=== PATIENT | male | born 1985 | race Caucasian/White ===

== ENCOUNTER 2021-10-18 06:36 | Emergency (ER) | payer SELFPAY ==
[2021-10-18 09:10] LABS: BILIRUBIN 1+ mg/dL (NEGATIVE); BLOOD NEGATIVE Ery/uL (NEGATIVE); CLARITY CLEAR (CLEAR); COLOR YELLOW (YELLOW); GLUCOSE (U) NORMAL (NORMAL); LEUKOCYTES TRACE Leu/uL (NEGATIVE); NITRITE NEGATIVE (NEGATIVE); PROTEIN TRACE (LOW) mg/dL (NEGATIVE); SPECIFIC GRAVITY 1.025 (1.001-1.030)
[2021-10-18] MEDS ORDERED: NAPROXEN500 MG PO (09:20)
[2021-10-18] MEDS ORDERED: VIBRAMYCIN100 MG PO (09:20)
[2021-10-18] MEDS ORDERED: NORCO 5-325 TA1 EACH PO (09:20)
[2021-10-18 09:29] LABS: URINARY WBC 20-50
[2021-10-18 09:30] LABS: BACTERIA TRACE; SPERM PRESENT
[2021-10-19 22:06] LABS: CHLAMYDIA TRACHOMATIS, NAA Negative (Negative); NEISSERIA GONORRHOEAE, NAA Negative (Negative)
== END 2021-10-18 09:58 | disposition home or self-care (01) ==
LOC: FER 06:36
PROVIDERS: Internal Medicine
DX: N45.1 Epididymitis (principal); Z28.310 Unvaccinated for COVID-19; Z88.0 Allergy status to penicillin
CPT/HCPCS: 76870; 81001; 87088; 87491; 87591; 96372; J0696; J1885